=== PATIENT | female | born 1960 | race Caucasian/White ===

== ENCOUNTER → 2020-07-24 | Day surgery (SDC) | payer BC ==
[~2020-07-24] MED LIST: Ketamine 200 MG/20 ML MDV ONE; Lactated Ringers 1,000 ML IV SCH; Propofol 200 MG/20 ML SDV ONE; fentaNYL 100 MCG/2 ML SDV ONE
--- NOTE | 2020-07-24 10:03 | OR ---
DATE OF OPERATION: 07/24/2020 PREOPERATIVE DIAGNOSIS: 1. HISTORY OF POLYPS. 2. CONSTIPATION. POSTOPERATIVE DIAGNOSIS: 1. HISTORY OF POLYPS. 2. CONSTIPATION. SURGEON: Javi Otero MD PROCEDURE: FULL-LENGTH COLONOSCOPY. ANESTHESIA: MAC. COMPLICATIONS: None. SPECIMEN: None. FINDINGS: Normal full-length colonoscopy. RECOMMENDATIONS: Medical followup with Dr. Lizarraga. INDICATIONS: The patient has a history of polyps in the past. She has been having some altered bowel habits in the form of constipation over the last [address] Lizarraga sent her for diagnostic scope. DESCRIPTION OF PROCEDURE: The patient was prepped and draped, placed in the left lateral decubitus position. A lubricated Olympus colonoscope was inserted and with relative ease advanced to the cecum. Direct visualization of the ileocecal valve and appendiceal orifice was accomplished. The bowel prep was excellent. Upon withdrawal of the scope, throughout the entire length of the colon, I could find no polyps, masses, ulceration or bleeding sites. No vascular abnormalities or signs of colitis. There were no diverticula. The rectal vault appeared benign. Retroflexion of scope in the rectum showed no anal lesions. Air was suctioned. Scope was removed without complication. ELIZABETH/GREGORY /[id number]
[2020-07-24 10:07] VITALS: BP 128/66; PULSE 68
== END ==
LOC: CC.SDS 07:37
PROVIDERS: ATTEND Family Medicine
DX: K59.00 Constipation, unspecified (principal); E11.9 Type 2 diabetes mellitus without complications; E03.9 Hypothyroidism, unspecified; K21.9 Gastro-esophageal reflux disease without esophagitis; Z86.010 Personal history of colon polyps; Z01.812 Encounter for preprocedural laboratory examination; Z79.84 Long term (current) use of oral hypoglycemic drugs; Z79.82 Long term (current) use of aspirin; F17.200 Nicotine dependence, unspecified, uncomplicated; Z79.899 Other long term (current) drug therapy; Z88.2 Allergy status to sulfonamides; Z20.822 Contact with and (suspected) exposure to COVID-19; Z98.890 Other specified postprocedural states; Z79.890 Hormone replacement therapy; E55.9 Vitamin D deficiency, unspecified; E78.00 Pure hypercholesterolemia, unspecified; Z88.1 Allergy status to other antibiotic agents
CPT/HCPCS: 00811; J2704; J3010; J7120

== ENCOUNTER 2025-01-24 10:09 | Day surgery (SDC) | payer MEDICARE, BC ==
[2025-01-24] MEDS: Lactated Ringers 1,000 ML IV SCH (10:47)
[2025-01-24] MEDS ORDERED: Propofol 200 MG/20 ML SDV ONE (11:00)
[2025-01-24] MEDS ORDERED: Midazolam 1 MG/ML 2 ML SDV ONE (11:00)
[2025-01-24] MEDS ORDERED: Flumazenil 0.1 MG/ML 5 ML MDV ONE (11:00)
[2025-01-24] MEDS ORDERED: fentaNYL 50 MCG/ML SDV ONE (11:00)
[2025-01-24] MEDS ORDERED: Ketamine 200 MG/20 ML MDV ONE (11:00)
[2025-01-24] MEDS ORDERED: Phenylephrine 1% 10 MG/ML SDV ONE (11:00)
[2025-01-24 12:13] VITALS: BP 157/68; PULSE 60
== END 2025-01-24 11:23 | disposition home or self-care (01) ==
LOC: CC.SDS 10:09
PROVIDERS: ATTEND Family Medicine
DX: Z12.11 Encounter for screening for malignant neoplasm of colon (principal); K21.9 Gastro-esophageal reflux disease without esophagitis; K64.4 Residual hemorrhoidal skin tags; I10 Essential (primary) hypertension; E03.9 Hypothyroidism, unspecified; E78.5 Hyperlipidemia, unspecified; E11.9 Type 2 diabetes mellitus without complications; Z79.82 Long term (current) use of aspirin; Z86.16 Personal history of COVID-19; Z79.84 Long term (current) use of oral hypoglycemic drugs; Z79.899 Other long term (current) drug therapy; Z87.891 Personal history of nicotine dependence; Z86.0100 Personal history of colon polyps, unspecified
CPT/HCPCS: 87081; J2003; J2250; J2371; J2704; J3010; J3490; J7120